=== PATIENT | female | born 1970 | race Caucasian/White ===

== ENCOUNTER 2022-12-26 18:44 | Inpatient (IN) | payer OTHER, SELFPAY ==
--- NOTE | 2022-12-26 18:45 | W.ED.OVERDOS ---
HPI - Overdose General: Chief Complaint: Psychiatric Symptoms Stated Complaint: Overdose Time Seen by Provider: 12/26/22 18:45 History of Present Illness: Ms. Jovel is a 52-year-old lady presented to the emergency department for evaluation of overdose. She reports increasing depression for unknown reason over the past few weeks. Today she reports taking a lot of ibuprofen due to headache and taking an overdose of melatonin and some amount of 1 bottle of liquid NyQuil with hopes of going to sleep and not waking up. This occurred at approximately 2:30 PM. She has not vomited since that time. Otherwise denies recent changes in health, other ingestions, injury. No other specific changes in health, exacerbating, or alleviating factors identified. She apparently wrote a note on her arm to her daughter. Onset (ago): hour(s) Time: 14:30 Intent: suicide attempt and wanted to go to sleep Associated symptoms: headaches and nausea/vomiting Review of Systems General: Reports: 10 or more systems reviewed and unremarkable except in HPI and below PFSH ED PFSH: Medical History Psychiatric care Physical Exam Const: COMMON NORMALS: alert GENERAL APPEARANCE: cooperative and well developed HENMT: COMMON NORMALS: normocephalic and atraumatic HEAD & SCALP: normocephalic and atraumatic Eye: COMMON NORMALS: conjunctivae normal CONJUNCTIVA: Yes conjunctivae normal SCLERA: sclerae normal Neck/C-Spine: COMMON NORMALS: supple GENERAL: Yes trachea midline Resp: COMMON NORMALS: normal respiratory effort EFFORT & INSPECTION: Yes able to speak in complete sentences Cardio: COMMON NORMALS: regular rate and regular rhythm RATE: regular rate RHYTHM: regular rhythm GI: COMMON NORMALS: Soft to palpation PALPATION: Yes Soft to palpation and No Tenderness to palpation present (GI) Extremity: GENERAL: Yes normal exam except as noted and No edema Neuro: COMMON NORMALS: moves all extremities SENSORIUM/ORIENTATION: Yes alert and No Orientation impaired Psych: MOOD & AFFECT: Yes Flat affect present Course Vital Signs: Vital signs: Vital Signs Temperature 97.8 F 12/29/22 16:22 Pulse Rate 87 12/29/22 16:22 Respiratory Rate 16 12/29/22 16:22 Blood Pressure 108/75 12/29/22 16:22 Pulse Oximetry 99 12/29/22 16:22 Oxygen Delivery Me thod Room Air 12/29/22 06:00 MDM - Overdose Medical Decision Making 52-year-old lady presenting with overdose. Exam as above. Patient seems clinically depressed. Labs demonstrate no significant hematologic or metabolic abnormality. TSH is normal. Urine drug screen and toxic ingestions are positive for urine drug screen of amphetamines and THC. Acetaminophen level is mildly elevated however looking at acetaminophen toxicity nomogram the patient does not require treatment with N-acetylcysteine. hCG negative. Given physical exam and clinical history provided there is no indication for imaging at this time. Based on ED evaluation at this point there is no obvious condition that would preclude the patient from inpatient management of psychiatric concerns/symptoms. Discussed with psychiatry service and patient will be admitted to psychiatry service. Medical Records I reviewed the patient's medical records. Lab Data I reviewed the patient's lab results. 12/26/22 19:03 12/26/22 19:03 Laboratory Results WBC 11.3 10^3/uL (4.0-10.0) H 12/26/22 19:03 RBC 4.46 10^6/uL (4.1-5.3) 12/26/22 19:03 Hgb 14.1 g/dL (11.5-15.3) 12/26/22 19:03 Hct 41.7 % (37.0-47.0) 12/26/22 19: MCV 93.5 fl (81-99) 12/26/22 19:03 MCH 31.6 pg (28.0-34.0) 12/26/22 19: MCHC 33.8 g/dL (30.0-36.0) 12/26/22 19: RDW 12.5 % (12.1-15.1) 12/26/22 19:03 Plt Count 227 10^3/cmm (130-400) 12/26/22 19:03 MPV 10.9 fL (7.4-10.4) H 12/26/22 19:03 Neut % (Auto) 67.2 % 12/26/22 19:03 Lymph % (Auto) 24.0 % 12/26/22 19:03 Smyth % (Auto) 6.9 % 12/26/22 19:03 Eos % (Auto) 1.0 % 12/26/22 19:03 Baso % (Auto) 0.6 % 12/26/22 19:03 Neut # (Auto) 7.63 10^3/uL (1.8-7.7) 12/26/22 19:03 Lymph # (Auto) 2.7 10^3/uL (0.8-4.8) 12/26/22 19:03 Smyth # (Auto) 0.8 10^3/uL (0.2-0.9) 12/26/22 19:03 Eos # (Auto) 0.1 10^3/uL (0.0-0.8) 12/26/22 19:03 Baso # (Auto) 0.1 10^3/uL (0.0-0.1) 12/26/22 19:03 Nucleated RBC % (auto) 0 % 12/26/22 19:03 Nucleated RBCs # 0.0 /100WBC 12/26/22 19:03 Sodium 141 mmol/L (136-145) 12/26/22 19:03 Potassium 3.8 mmol/L (3.5-5.1) 12/26/22 19:03 Chloride 102 mmol/L (98-107) 12/26/22 19:03 Carbon Dioxide 27 mmol/L (22-29) 12/26/22 19:03 Anion Gap 15.8 (5-19) 12/26/22 19:03 BUN 14 mg/dL (6-20) 12/26/22 19:03 Creatinine 0.9 mg/dL (0.5-0.9) 12/26/22 19:03 GFR Calculation 65.5 mL/min (90-130) L 12/26/22 19:03 Glucose 109 mg/dL (65-115) 12/26/22 19:03 Calculated Osmolality 293 mOsm/kg (285-295) 12/26/22 19:03 Calcium 9.5 mg/dL (8.5-10.5) 12/26/22 19:03 Total Bilirubin 0.2 mg/dL (0.15-1.2) 12/26/22 19:03 AST 17 U/L (0-32) 12/26/22 19:03 ALT 13 U/L (0-33) 12/26/22 19:03 Alkaline Phosphatase 73 U/L (35-105) 12/26/22 19:03 Total Protein 7.3 g/dL (6.6-8.7) 12/26/22 19:03 Albumin 4.3 g/dL (3.5-5.2) 12/26/22 19:03 Globulin 3.0 g/dL (1.3-4.6) 12/26/22 19:03 TSH 2.10 uIU/mL (0.27-4.20) 12/26/22 19:03 HCG, Qual Negative (Negative) 12/26/22 17:58 Salicylates < 0.3 mg/dL (3-10) L 12/26/22 19:03 Acetaminophen 40.7 ug/mL (10-30) H 12/26/22 19:03 Ethyl Alcohol < 10 mg/dL (0-10) 12/26/22 19:03 Discharge Plan Discharge Patient Disposition: Admitted As Inpatient Admit Provider: Chaparro Neal Clinical Impression: Suicide attempt by drug overdose Condition: Stable Discharge Diet: Regular Discharge Activity: Resume usual activity Coding Level of Care Code ED Freelance Writer for [employer]
[2022-12-26 19:00] VITALS: BP 138/72; PULSE 79; RESP 18; TEMP 36.8; O2SAT 95; BMI 21.6
[2022-12-26 19:29] LABS: Basophils # 0.1 10^3/uL (0.0-0.1); Basophils % 0.6 %; Eosinophils # 0.1 10^3/uL (0.0-0.8); Hematocrit 41.7 % (37.0-47.0); Hemoglobin 14.1 g/dL (11.5-15.3); Lymphocytes # 2.7 10^3/uL (0.8-4.8); Mean Corpuscular HGB Conc 33.8 g/dL (30.0-36.0); Mean Corpuscular Hemoglobin 31.6 pg (28.0-34.0); Mean Corpuscular Volume 93.5 fl (81-99); Mean Platelet Volume 10.9 fL (7.4-10.4); Monocytes # 0.8 10^3/uL (0.2-0.9); Monocytes % 6.9 %; Neutrophils # 7.63 10^3/uL (1.8-7.7); Neutrophils % 67.2 %; Nucleated Red Blood Cells % 0 %; Platelet Count 227 10^3/cmm (130-400); Red Blood Count 4.46 10^6/uL (4.1-5.3); Red Cell Distribution Width 12.5 % (12.1-15.1); White Blood Count 11.3 10^3/uL (4.0-10.0)
[2022-12-26 20:01] LABS: Acetaminophen 40.7 ug/mL (10-30); Alanine Aminotransferase 13 U/L (0-33); Albumin Level 4.3 g/dL (3.5-5.2); Alkaline Phosphatase 73 U/L (35-105); Anion Gap 15.8 (5-19); Aspartate Amino Transferase 17 U/L (0-32); Blood Urea Nitrogen 14 mg/dL (6-20); Calcium 9.5 mg/dL (8.5-10.5); Carbon Dioxide 27 mmol/L (22-29); Chloride 102 mmol/L (98-107); Glomerular Filtration Rate 65.5 mL/min (90-130); Glucose 109 mg/dL (65-115); Osmolality Calculated 293 mOsm/kg (285-295); Potassium 3.8 mmol/L (3.5-5.1); Sodium 141 mmol/L (136-145); Total Bilirubin 0.2 mg/dL (0.15-1.2); Total Protein 7.3 g/dL (6.6-8.7)
[2022-12-26 20:02] LABS: Alcohol Level < 10 mg/dL (0-10); Salicylate < 0.3 mg/dL (3-10)
--- NOTE | 2022-12-26 20:49 | PC.NURSE ---
96 Hour Patient Rights have been read to patient and a copy of the same has been given to her. correctional security officer Varun Neal was present at bedside during the time of the reading.
[2022-12-26 21:17] VITALS: BP 151/73; PULSE 87; RESP 18; TEMP 36.7; O2SAT 95
[2022-12-27 06:00] VITALS: BP 129/82; PULSE 65; RESP 18; O2SAT 97
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
[2022-12-27 14:00] VITALS: BP 153/69; PULSE 61; RESP 16; TEMP 36.7; O2SAT 99
[2022-12-27] MEDS: nicotine 2 mg Gum BUCCAL (18:23)
[2022-12-27 18:34] LABS: HCG Qualitative Urine. Negative (Negative)
[2022-12-27 18:46] LABS: Amphetamines Screen Urine Positive (Negative); Barbiturates Screen Urine Negative (Negative); Benzodiazepines Screen Urine Negative (Negative); Cocaine Screen Urine Negative (Negative); Opiate Screen Urine Negative (Negative); PCP Screen Urine Negative (Negative); THC Screen Urine Positive (Negative)
[2022-12-27 20:27] VITALS: BP 135/80; PULSE 69; RESP 18; TEMP 36.8; O2SAT 98
[2022-12-27] MEDS: trazodone 50 mg Tablet PO (23:19)
[2022-12-28 06:00] VITALS: BP 124/73; PULSE 67; RESP 16; O2SAT 97
[2022-12-28] MEDS: nicotine 2 mg Gum BUCCAL ×3 (06:51→18:22)
[2022-12-28] MEDS: buPROPion XL (24 HR) 150 mg Tablet PO (11:26)
[2022-12-28 14:00] VITALS: BP 128/79; PULSE 63; RESP 16; TEMP 36.9; O2SAT 96
--- NOTE | 2022-12-28 18:50 | W.PM.NPUPNS ---
Subjective NPU Subjective: Patient presented today reporting that she tolerated the medication this morning and did agree earlier to initiating Wellbutrin XL 150 mg every morning after discussion of the risks, benefits and alternatives she understood and agreed to proceed as is documented in this note. She did meet with the social work team and was cooperative with them and setting up outpatient services. She expressed concerns about the cost of medication and we discussed the fact that this first month would be meds to beds program and then we discussed the fact that 1 could get the medication [id number] for $15 a month possibly. Using good Rx. We discussed taking discharge today at a time and that we would discuss it tomorrow as a possibility but that we would assess each day and make a decision. Mental Status Exam MSE Comments: This is a slender, white female, in hospital scrubs, with improved grooming and eye contact. No abnormal movements, except for psychomotor retardation. Cooperative with exam in mild distress. Speech was slightly decreased volume and normal rate. Mood described as a little better; affect less irritable. Thought process, organized. Thought content: patient denied any suicidal or homicidal ideation, there were no delusions reported or noted, patient denied any auditory or visual hallucinations. Attention and concentration appeared intact, and memory was somewhat reliable but would not likely intentionally so, but none were formally tested. She is alert and oriented times three. Insight and judgment are limited. Impulse control is impaired. Vitals/I&O/Wt Last Vital Signs Temp 98.5 F 12/28/22 20:18 Pulse 89 12/28/22 20:18 Resp 17 12/28/22 20:18 BP 105/69 12/28/22 20:18 Pulse Ox 96 12/28/22 20:18 O2 Del Method Room Air 12/28/22 20:18 Data NPU 12/26/22 19:03 12/26/22 19:03 A&P Assessment and plan (1) Postmenopausal: (2) Major depressive disorder with single episode: (3) Suicidal thoughts: (4) Suicide attempt by drug overdose: (5) Parent-child relational problem: Plan This is a 52-year-old, white female, with no reported history of mental health issues, but does report some depression/increased tearfulness related to being postmenopausal who presents on a 96-hour hold secondary to an attempted overdose endorsing an openness to consider medication.. 1. Start Wellbutrin XL 150 mg daily. 2. Encourage individual, group, and milieu therapy. 3. Continue q-15-minute checks for safety. 4. Monitor for safety given the 96-hour hold. Involuntary Hold Information 96 Hour Hold: 96 Hour Involuntary Admission: Yes 96 Hour Hold Ending Date: 12/26/22 96 Hour Hold Ending Time: 19:45 Attestations NPU Medical Necessity Statement*: Inpatient hospitalization is medically necessary and the clinically appropriate intervention, at this time. We will monitor medications and make changes as indicated. Likely length of stay is 1-3. Coding Level of Care Code Acute Code for Chg Fwd Diagnoses Postmenopausal Z78.0 Major depressive disorder with single episode F32.9 Suicidal thoughts R45.851 Suicide attempt by drug overdose T50.902A Parent-child relational problem Z62.820
[2022-12-28 20:18] VITALS: BP 105/69; PULSE 89; RESP 17; TEMP 36.9; O2SAT 96
[2022-12-29 06:00] VITALS: BP 127/74; PULSE 79; RESP 16; O2SAT 94
[2022-12-29] MEDS: nicotine 2 mg Gum BUCCAL ×4 (06:52→16:23)
[2022-12-29] MEDS: buPROPion XL (24 HR) 150 mg Tablet PO (10:29)
[2022-12-29] MEDS: polyethylene glycol 3350 Pkt 17 gm PO (10:29)
[2022-12-29 14:00] VITALS: BP 108/75; PULSE 87; RESP 16; TEMP 36.6; O2SAT 99
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
[2022-12-29 16:22] VITALS: BP 108/75; PULSE 87; RESP 16; TEMP 36.6; O2SAT 99
== END 2022-12-29 17:14 | disposition home or self-care (01) | DRG 918 ==
LOC: ER 20:42 → NP 20:47
PROVIDERS: Admitting Provider Psychiatry & Neurology Psychiatry; Emergency Provider Emergency Medicine; Visit Provider Psychiatry & Neurology Psychiatry
DX: T38.892A Poisoning by other hormones and synthetic substitutes, intentional self-harm, initial encounter (principal); R45.851 Suicidal ideations; T48.4X2A Poisoning by expectorants, intentional self-harm, initial encounter; Z78.0 Asymptomatic menopausal state; F32.9 Major depressive disorder, single episode, unspecified; F17.210 Nicotine dependence, cigarettes, uncomplicated; F10.11 Alcohol abuse, in remission; F12.90 Cannabis use, unspecified, uncomplicated; Z63.8 Other specified problems related to primary support group; Z62.820 Parent-biological child conflict; Z81.1 Family history of alcohol abuse and dependence
CPT/HCPCS: 36415; 80053; 80306; 80307; 81025; 84443; 85025; 97165; 99238; 99285